=== PATIENT | female | born 1990 | race Caucasian/White ===

== ENCOUNTER 2018-03-03 18:19 | Emergency (ER) | payer SELFPAY ==
--- NOTE | 2018-03-03 18:39 | EDPHY ---
H & P Time Seen by Provider: 03/03/18 18:28 HPI/ROS: CHIEF COMPLAINT: Odontalgia HISTORY OF PRESENT ILLNESS: 28-year-old female history of poor dentition, visiting from [place], returning in a few days, bit into some food 5 days ago and fractured a molar. Complaining of pain to same location. No fever no chills. No facial swelling. PHYSICAL EXAM (Prior to examination, patient consented to physical exam, hands were washed and my usual and customary physical exam procedures followed) 1) GENERAL: Well-developed, well-nourished, alert and oriented. Appears to be in no acute distress. 2) HEAD: Normocephalic 3) HEENT: sclera anicteric. Poor dentition. Symmetrical faces. Nasolabial fold symmetrical. Sublingual, submental, submandibular spaces are soft no induration, no tenderness. Tooth 19. Tender to percussion. No evidence of apical abscess. No trismus no drooling. 4) LUNGS: Breathing comfortably. Smoking Status: Current every day smoker Constitutional: Initial Vital Signs Temperature (C) 36.9 C 03/03/18 18:20 Heart Rate 98 03/03/18 18:20 Respiratory Rate 18 03/03/18 18:20 Blood Pressure 130/87 H 03/03/18 18:20 O2 Sat (%) 97 03/03/18 18:20 O2 Delivery Mode Room Air Allergies/Adverse Reactions: NSAIDS (Non-Steroidal Anti-Inflamma Allergy (Severe, Verified 03/03/18 18:24) "quits breathing" prednisone Allergy (Severe, Verified 03/03/18 18:26) "quits breathing" hydroxyzine Allergy (Intermediate, Verified 03/03/18 18:26) panic atttack metoclopramide [From Reglan] Allergy (Intermediate, Verified 03/03/18 18:26) panic attack cephalexin [From Keflex] Allergy (Mild, Verified 03/03/18 18:26) Rash latex Allergy (Mild, Verified 03/03/18 18:24) Rash Home Medications: Medication Instructions Recorded Clindamycin HCl [Clindamycin] 300 mg PO TID 7 Days cap 03/03/18 Hydrocodone/APAP 5/325 [[place] 1 tab PO Q6 PRN #10 tab 03/03/18 5/325 (RX)] MDM/Departure - [facility] ED Course/Re-evaluation: Doubt Johann's angina, doubt apical abscess, doubt deep space infection. Offered dental nerve block which he declines. She is returning to [place] a few days and has an appointment with her dentist on Sunday (today is Sunday). Recommend she keep this appointment. Initiating maxilla on and analgesia. My usual and customary odontogenic precautions and instructions provided. All questions and concerns addressed by myself. Care of patient under supervision of secondary supervising physician Dr Prajapati . - Depart Disposition: Home, Routine, Self-Care Clinical Impression: Odontalgia Instructions: Toothache (ED) Additional Instructions: Return to the ER immediately if you cannot swallow, have drooling, fevers, neck stiffness, cannot open your jaw, or any other symptoms that concern you. Prescriptions: Clindamycin HCl [Clindamycin] 300 mg PO TID 7 Days cap Hydrocodone/APAP 5/325 [[place] 5/325 (RX)] 1 tab PO Q6 PRN #10 tab PRN Reason: Pain, Severe Referrals: Dental [facility] [Outside] - As per Instructions Dental [facility] [Outside] - As per Instructions Dental [facility] [Outside] - As per Instructions [facility] [Outside] - As per Instructions [facility] [Outside] - As per Instructions
[2018-03-03] MEDS ORDERED: HYDROCODONE/APAP 5/325 TAB PO ONE (18:40)
[2018-03-03 19:02] VITALS: BP 119/78
== END 2018-03-03 19:03 | disposition home or self-care (01) ==
DX: K08.89 Other specified disorders of teeth and supporting structures (principal)